=== PATIENT | female | born 1990 | race Two or more races ===

== ENCOUNTER 2021-01-01 03:43 | Emergency (ER) | payer MEDICAID ==
[~2021-01-01] VITALS: Ht 170.2 cm; Wt 108.9 kg
[2021-01-01 04:36] LABS: Basophils # (auto) 0.1 10 ^3/uL (0-0.2); Basophils % (auto) 0.8 % (0.0-2.0); Eosinophils # (auto) 0.2 10 ^3/uL (0-0.8); Eosinophils % (auto) 1.3 % (0.0-7.0); Hematocrit 42.5 % (36.0-46.0); Hemoglobin 14.2 g/dL (12.2-16.2); Lymphocytes # (auto) 4.3 10 ^3/uL (0.4-5.4); Lymphocytes % (auto) 32.9 % (10.0-50.0); Mean Corpuscular Hgb Conc. 33.3 g/dL (32.0-36.0); Mean Corpuscular Volume 83.9 fL (80.0-100.0); Monocytes # (auto) 0.6 10 ^3/uL (0-1.3); Monocytes % (auto) 4.8 % (0.0-12.0); Neutrophils # (auto) 7.9 10 ^3/uL (1.6-8.6); Neutrophils % (auto) 60.2 % (37.0-80.0); Red Blood Cells 5.06 10^6/uL (4.0-5.20)
[2021-01-01 04:54] LABS: Potassium 3.8 mmol/L (3.5-5.1)
[2021-01-01 05:04] LABS: Albumin 3.9 g/dL (3.4-5.0); BUN/Creatinine Ratio 14.5; Bilirubin, Total 0.3 mg/dL (0.2-1.0); Calcium 9.1 mg/dL (8.5-10.1); Total Protein 7.3 g/dL (6.4-8.2)
[2021-01-01 07:23] VITALS: BP 123/82
== END 2021-01-01 07:25 | disposition home or self-care (01) ==
LOC: ER 03:43
DX: K29.70 Gastritis, unspecified, without bleeding (principal)
CPT/HCPCS: 36415; 80053; 85025